=== PATIENT | female | born 1960 | race African-American/Black ===

== ENCOUNTER 2016-10-24 05:46 | Day surgery (SDC) | payer MEDICAID ==
[2016-10-22 09:20] LABS: EOSINOPHILS 1.5 % (0-7); HEMATOCRIT 40.3 % (36.0-48.0); HEMOGLOBIN 13.2 g/dL (12-16); IMMATURE GRANULOCYTES 0.2 % (0-5); LYMPHOCYTES 38.5 % (15-50); MCH 32.9 pg (26.0-34.0); MCHC 32.8 g/dL (31.0-37.0); MCV 100.5 fL (80.0-100.0); MEAN PLATELET VOLUME 10.7 fL (7.4-10.4); MONOCYTES 12.9 % (2-11); NEUTROPHILS 45.9 % (40-80); PLATELET COUNT 261 10x3/uL (130-400); RBC 4.01 10x6/uL (4.00-5.40); RDW 12.5 % (11.5-14.5); WBC 4.8 10x3/uL (4.8-10.8)
[2016-10-22 09:37] LABS: CALC OSMOLALITY 277 mosm/kg (275-300); CALCIUM 8.8 mg/dL (8.5-10.1); CARBON DIOXIDE 32.6 mmol/L (21.0-32.0); CHLORIDE - SERUM 103 mmol/L (98-107); CREATININE - SERUM 0.7 mg/dL (0.6-1.3); GLUCOSE 88 mg/dL (74-106); POTASSIUM - SERUM 3.4 mmol/L (3.5-5.1); SODIUM 140 mmol/L (136-145); UREA NITROGEN 12 mg/dL (7-18); eGFR NON AFRICAN AMERICAN > 90 mL/min (90-120)
[~2016-10-24] VITALS: Ht 170.2 cm; Wt 58.5 kg
[~2016-10-24 05:46] MED LIST: FOLIC ACID1 MG PO; HUMIRA20 MG/0.4 SQ; LIPITOR20 MG PO; MYSOLINE250 MG PO; ULTRAM50 MG PO; XALATAN 0.0052.5 ML EACH EYE; ZOLOFT100 MG PO
--- NOTE | 2016-10-24 06:08 | NUR ---
0605-AFTER SCANNING PILL PACKAGES, IT WAS DISCOVERED PT. HAD HISTORY OF GLAUCOMA ROBINUL WAS NOT ADMINISTERED-WASTED IN TRASH CAN.
[2016-10-24 06:12] VITALS: BP 148/89; Ht 170.2 cm; Wt 58.5 kg
[2016-10-24] MEDS ORDERED: MEPERIDINE HCL50 MG PO (09:19)
--- NOTE | 2016-10-24 11:45 | NUR ---
DISCHARGE INSTRUCTIONS AND RX GIVEN, VOICED UNDERSTANDING. DISCHARGED HOME VIA WC.
--- NOTE | 2016-10-24 16:25 | OP ---
PATIENT NAME: SHAHAB REYNOLDS MEDICAL RECORD: [id number] :58 LOCATION:D.OPS ADMISSION DATE: SURGEON: SHAWN THRASHER MD DATE OF OPERATION: 10/24/2016 PREOPERATIVE DIAGNOSES: 1. Biliary dyskinesia. 2. Hypercholesterolemia. 3. Arthritis. POSTOPERATIVE DIAGNOSES: 1. Biliary dyskinesia. 2. Hypercholesterolemia. 3. Arthritis. PROCEDURE: Single incision laparoscopic converted to a traditional laparoscopic cholecystectomy. SURGEON: Shawn Thrasher MD REPORT OF PROCEDURE: The patient's abdomen was prepped and draped in sterile fashion. A cutdown was made through the patient's umbilicus. Electrocautery was used to dissect through the subcutaneous tissues and through the fascia, once in the abdominal cavity, then an SILS port was inserted. After insufflation was obtained, the patient's gallbladder was grasped and elevated. The patient had a very long liver. It was thin, but very long and the gallbladder was retracted into the liver. We attempted dissection and it was very difficult because the anatomy of the patient. We eventually were able to dissect out the cystic duct, but the cystic duct was very short, maybe 1-2 cm in length. We eventually elected just to convert to a traditional laparoscopic procedure to facilitate better visualization. A 5-mm trocars times 3 were inserted in the right subcostal region. At this point, the cystic duct was clearly visualized. It was short, but we had good visualization and we could see the cystic artery, we had our critical view of safety, we clipped these 2 structures proximally and distally and ligated them standard fashion. The gallbladder was then taken off the liver bed using electrocautery. Any bleeding from the liver bed was then treated with electrocautery. We irrigated out the right upper quadrant and assured there was no sign of any bleeding or bile leakage. At this point, the ports and insufflation were then removed and the gallbladder was taken out through the umbilicus. The umbilical fascia was closed with interrupted 0 Vicryls times 5. The wounds were irrigated out with normal saline and infused with 10 mL of 0.25% Marcaine with epinephrine. The skin incisions were all closed with subcutaneous 5-0 Monocryl and dressed appropriately. COMPLICATIONS: None. CONDITION: Stable. ANESTHESIA: General endotracheal and local. BLOOD LOSS: 30 mL. TRANSINT:[id number] Voice Confirmation ID: [id number] DOCUMENT ID: [id number] CC: Ang Hendrickson APN [facility] [phone] OPERATIVE REPORT [id number] SHAHAB REYNOLDS CHRISTIAN MD at 1625 CC: ANG HENDRICKSON APN [id number] DICTATION DATE: 10/24/16922 SAMPLE PASTER: 10/24/16 1147 [facility] 10/24/16 [place] [id number]
== END 2016-10-24 11:45 | disposition home or self-care (01) ==
LOC: D.OPS 05:46 → D.PAN 12:00 → D.OPS 12:00
PROVIDERS: Surgery
DX: K82.8 Other specified diseases of gallbladder (principal); E78.00 Pure hypercholesterolemia, unspecified; M19.90 Unspecified osteoarthritis, unspecified site

== ENCOUNTER → 2017-01-26 13:43 | Outpatient (CLI) | payer MEDICAID ==
[2016-10-24 06:12] VITALS: BMI 20.2
[~2017-01-26 13:43] MED LIST changes: +MEPERIDINE HCL50 MG PO
== END | disposition home or self-care (01) ==
LOC: D.MRI 13:43
DX: S93.402A Sprain of unspecified ligament of left ankle, initial encounter (principal)

== ENCOUNTER 2017-11-09 06:07 | Emergency (ER) | payer MEDICAID ==
[2016-10-24 06:12] VITALS: BMI 20.2
[2017-11-09 06:27] LABS: BASOPHILS 0.4 % (0-2); EOSINOPHILS 1.2 % (0-7); HEMATOCRIT 38.1 % (36.0-48.0); IMMATURE GRANULOCYTES 0.1 % (0-5); LYMPHOCYTES 32.7 % (15-50); MCH 33.4 pg (26.0-34.0); MCHC 34.1 g/dL (31.0-37.0); MCV 97.9 fL (80.0-100.0); MEAN PLATELET VOLUME 10.4 fL (7.4-10.4); MONOCYTES 8.6 % (2-11); PLATELET COUNT 265 10x3/uL (130-400); RBC 3.89 10x6/uL (4.00-5.40); RDW 12.8 % (11.5-14.5); WBC 7.4 10x3/uL (4.8-10.8)
[2017-11-09 06:42] LABS: AMYLASE - SERUM 150 U/L (25-115); LIPASE 149 U/L (73-393)
[2017-11-09 06:47] LABS: ALBUMIN 4.2 g/dL (3.4-5.0); ALKALINE PHOSPHATASE 84 U/L (46-116); ALT (SGPT) 73 U/L (10-68); BILIRUBIN - TOTAL 0.31 mg/dL (0.2-1.3); CALC OSMOLALITY 276 mosm/kg (275-300); CALCIUM 8.8 mg/dL (8.5-10.1); CARBON DIOXIDE 26.5 mmol/L (21.0-32.0); CHLORIDE - SERUM 103 mmol/L (98-107); CREATININE - SERUM 0.8 mg/dL (0.6-1.3); GLUCOSE 106 mg/dL (74-106); POTASSIUM - SERUM 3.6 mmol/L (3.5-5.1); PROTEIN - SERUM 7.4 g/dL (6.4-8.2); SODIUM 139 mmol/L (136-145); UREA NITROGEN 9 mg/dL (7-18); eGFR NON AFRICAN AMERICAN 78 mL/min (90-120)
== END 2017-11-09 08:10 | disposition home or self-care (01) ==
LOC: D.ER 06:07
PROVIDERS: Family Medicine
DX: R11.10 Vomiting, unspecified (principal); R51 Headache

== ENCOUNTER → 2018-01-04 12:17 | Outpatient (CLI) | payer MEDICAID ==
[2016-10-24 06:12] VITALS: BMI 20.2
== END | disposition home or self-care (01) ==
LOC: D.MRI 12:17
DX: M54.2 Cervicalgia (principal)

== ENCOUNTER → 2018-03-17 12:01 | Outpatient (CLI) | payer MEDICAID ==
[2016-10-24 06:12] VITALS: BMI 20.2
== END | disposition home or self-care (01) ==
LOC: D.RAD 12:01 → D.MRI 14:00
DX: S43.491A Other sprain of right shoulder joint, initial encounter (principal); X58.XXXA Exposure to other specified factors, initial encounter

== ENCOUNTER 2019-11-10 05:55 | Day surgery (SDC) | payer MEDICAID ==
[2019-11-08 10:30] LABS: HEMATOCRIT 38.8 % (36.0-48.0); HEMOGLOBIN 12.8 g/dL (12-16); MCH 33.2 pg (26.0-34.0); MCV 100.5 fL (80.0-100.0); MEAN PLATELET VOLUME 10.6 fL (7.4-10.4); RBC 3.86 10x6/uL (4.00-5.40); RDW 13.7 % (11.5-14.5); WBC 7.8 10x3/uL (4.8-10.8)
[~2019-11-10] VITALS: Ht 167.6 cm; Wt 68.0 kg
[~2019-11-10 05:55] MED LIST changes: +ALPHAGAN 0.2%5 ML; +AMBIEN10 MG PO; +CYMBALTA60 MG PO; +DONEPEZIL HCL10 MG PO; +KLONOPIN0.5 MG PO; +LYRICA75 MG PO; +MOBIC7.5 MG PO; +PROTONIX40 MG PO; +TIMOPTIC 0.5 % O5 ML EACH EYE
[2019-11-10 07:02] VITALS: BP 159/101; Ht 167.6 cm; Wt 68.0 kg
[2019-11-10] MEDS ORDERED: HYDROCODON-ACE1 EA10 PO (09:35)
--- NOTE | 2019-11-10 12:05 | NUR ---
PATIENT AMBULATING AROUND ROOM WITHOUT UNSTEADINESS OR DIZZINESS, PIV DC'D WITH TIP INTACT, DISCHARGE INSTRUCTIONS REVIEWED WITH PATIENT AND SPOUSE, DISCHARGED HOME VIA WHEELCHAIR TO PRIVATE VEHICLE WITH SPOUSE
--- NOTE | 2019-11-14 09:56 | OP ---
PATIENT NAME: SHAHAB REYNOLDS MEDICAL RECORD: [id number] :58 LOCATION:D.OPS ADMISSION DATE: SURGEON: RACH PAINTER MD DATE OF OPERATION: 11/10/2019 PREOPERATIVE DIAGNOSIS: Impingement syndrome of the right shoulder. POSTOPERATIVE DIAGNOSIS: Impingement syndrome of the right shoulder. PROCEDURES: 1. Arthroscopic distal clavicle excision done through separate incision - 1 cm. 2. Arthroscopic subacromial decompression with acromioplasty and bursectomy. SURGEON: Rach Painter MD ANESTHESIA: General. INTRAOPERATIVE COMPLICATIONS: None. SUMMARY OF PATHOLOGIC FINDINGS: As predicted by the MRI, the patient had attritional changes of the rotator cuff. No articular rotator cuff tearing was seen. The patient had a downward sloping acromion with severe excoriation of the coracoacromial ligament as well as grade IV changes in the distal clavicle. OPERATIVE SUMMARY IN DETAIL: After obtaining appropriate preoperative orthopedic surgery consent as well as anesthetic consultation, evaluation and clearance, the patient was brought to the operating room and placed on the operating table in a supine position. After adequate general laryngeal mask airway was administered, the patient was placed in the left lateral decubitus position. All pressure points were well padded to include down leg peroneal pad as well as axillary roll. She was held firmly to the operating table using vacuum pack suction system. The patient's right upper extremity and shoulder were then prepped and draped in routine sterile fashion. The arm was held in the Arthrex traction boom in 30 degrees of forward flexion, 30 degrees of abduction, 10 pounds of traction laterally. At this point, the appropriate timeout was taken and agreed upon by all given the patient's unique identifiers. Arthroscopy was then established in the glenohumeral joint from the posterior portal. Anterior portal was established in the anterior safe interval. Diagnostic arthroscopy of the glenohumeral joint showed mild labral tearing and minimal amount of biceps tendinitis. No rotator cuff tearing was seen. Attention was then turned to the subacromial space. Arthroscopy was established in the subacromial space. Accessory lateral portal was created through which the [place] tissue ablation system was utilized to denude the undersurface of the acromion of all soft tissue elements and release the coracoacromial ligament. A 5.0 barrel bur was then used to perform acromioplasty at the level of acromioclavicular joint. Then through a separate anterior portal under direct arthroscopic visualization, distal clavicle was excised for 1 cm and all osteophytes were taken down. Lastly, the subacromial bursitis was removed both anteriorly, laterally, posteriorly as well as superiorly. The rotator cuff had some small attritional tearing, but nothing beyond approximately 10%. Having completed this, arthroscopy portals were closed in routine interrupted fashion using 4-0 Prolene. Sterile dressings were applied. The patient was awakened and taken to the recovery room in stable condition. All final needle and sponge counts were correct. OPERATIVE REPORT [id number] SHAHAB REYNOLDS TRANSINT:[id number] Voice Confirmation ID: [id number] DOCUMENT ID: [id number] MADINA SCHMITT, RACH VELARDE at 0956 CC: [id number] DICTATION DATE: 11/11/19 1005 [employer]AURANT ASSOCIATE: 11/11/19 1237 [facility] 11/10/19 [place] [id number] [place] [address]
== END 2019-11-10 12:05 | disposition home or self-care (01) ==
LOC: D.OPS 05:55 → D.PAN 08:15 → D.OPS 08:15 → D.PAN 12:30
PROVIDERS: Anesthesiology; ATTEND Orthopaedic Surgery
DX: M75.41 Impingement syndrome of right shoulder (principal); M25.519 Pain in unspecified shoulder

== ENCOUNTER 2020-02-14 05:55 | Day surgery (SDC) | payer MEDICAID ==
[~2020-02-14] VITALS: Ht 168.9 cm; Wt 72.7 kg
--- NOTE | ~2020-02-14 | OP ---
PATIENT NAME: SHAHAB REYNOLDS MEDICAL RECORD: [id number] :58 LOCATION:D.OPS ADMISSION DATE: SURGEON: GRETTA THRASHER MD DATE OF OPERATION: 02/14/2020 PREOPERATIVE DIAGNOSES: 1. Gastroesophageal reflux disease. 2. Hypercholesterolemia. POSTOPERATIVE DIAGNOSES: 1. Gastroesophageal reflux disease. 2. Hypercholesterolemia. PROCEDURE: 1. EGD with biopsy. 2. Ortiz catheter placement. SURGEON: Gretta Thrasher MD REPORT OF PROCEDURE: The Olympus endoscope was advanced through the mouth and esophagus. We were able to easily pass through the GE junction into the stomach. As we passed through the pylorus, we could see the duodenum and there was no sign of inflammatory changes, masses or ulcerations. As we pulled back and biopsy was taken of the antrum of the stomach, there was just some mild gastritis noted. There are no ulcerations or masses visible. Retroflexed view showed that the patient had a moderate size hiatal hernia. This was measured out to be about 3-4 cm in size. As we pulled the scope back, we took some biopsies of the distal aspect of the esophagus. There are no signs of any ulcerations, but there was some white patchy changes to the tissue. We then removed the insufflation and pulled back the scope and did a careful inspection of the esophagus and again no masses or strictures were noted. Following removal of the catheter, the Ortiz pH monitor was inserted. The GE junction was noted to be at 35 cm on the EGD, so this monitor was placed at 30 cm at the teeth. After a lot amount of time, the device was deployed. COMPLICATIONS: None. CONDITION: Stable. ANESTHESIA: TIVA. BLOOD LOSS: Minimal. TRANSINT:[id number] Voice Confirmation ID: [id number] DOCUMENT ID: [id number] GRETTA THRASHER MD CC: [id number] DICTATION DATE: 02/14/20800 CATERING COOK: 02/14/2038 [facility] [address] [place] [address]
[~2020-02-14 05:55] MED LIST changes: +HYDROCODON-ACE1 EA10 PO
[2020-02-14 06:25] LABS: BASOPHILS 0.6 % (0-2); EOSINOPHILS 1.9 % (0-7); HEMATOCRIT 39.9 % (36.0-48.0); HEMOGLOBIN 13.1 g/dL (12-16); IMMATURE GRANULOCYTES 0.2 % (0-5); LYMPHOCYTES 41.9 % (15-50); MCH 32.3 pg (26.0-34.0); MCHC 32.8 g/dL (31.0-37.0); MCV 98.5 fL (80.0-100.0); MONOCYTES 10.7 % (2-11); NEUTROPHILS 44.7 % (40-80); RBC 4.05 10x6/uL (4.00-5.40); RDW 12.7 % (11.5-14.5); WBC 5.2 10x3/uL (4.8-10.8)
[2020-02-14 06:35] LABS: PLATELET COUNT 288 10x3/uL (130-400)
[2020-02-14 06:52] LABS: ANION GAP 12.7 mmol/L (8-16); CALCIUM 8.6 mg/dL (8.5-10.1); CARBON DIOXIDE 28.8 mmol/L (21.0-32.0); CREATININE - SERUM 0.9 mg/dL (0.6-1.3); POTASSIUM - SERUM 3.5 mmol/L (3.5-5.1)
[2020-02-14 07:11] VITALS: Ht 168.9 cm; Wt 72.7 kg
--- NOTE | 2020-02-14 08:44 | NUR ---
DC INSTRUCTIONS GIVEN TO PT/SPOUSE. STATE UNDERSTANDING. DC'D IV CATH FULLY INTACT.
--- NOTE | 2020-02-14 08:49 | NUR ---
PT LEFT UNIT VIA WC AT 0869
== END 2020-02-14 08:50 | disposition home or self-care (01) ==
LOC: D.OPS 05:55
PROVIDERS: ATTEND Surgery
DX: K21.9 Gastro-esophageal reflux disease without esophagitis (principal); E78.00 Pure hypercholesterolemia, unspecified

== ENCOUNTER 2020-03-08 06:21 | Day surgery (SDC) | payer MEDICAID ==
[~2020-03-08] VITALS: Ht 167.6 cm; Wt 70.9 kg
[2020-03-08] VITALS (11 sets, daily range): BP systolic 129–177; BP diastolic 76–95; Ht 167.6 cm; Wt 70.9 kg
[2020-03-08 06:48] LABS: BASOPHILS 0.6 % (0-2); EOSINOPHILS 2.5 % (0-7); HEMATOCRIT 37.5 % (36.0-48.0); HEMOGLOBIN 12.2 g/dL (12-16); IMMATURE GRANULOCYTES 0.2 % (0-5); LYMPHOCYTES 45.7 % (15-50); MCH 32.4 pg (26.0-34.0); MCHC 32.5 g/dL (31.0-37.0); MCV 99.5 fL (80.0-100.0); MEAN PLATELET VOLUME 10.6 fL (7.4-10.4); PLATELET COUNT 270 10x3/uL (130-400); RBC 3.77 10x6/uL (4.00-5.40); RDW 13.2 % (11.5-14.5); WBC 4.8 10x3/uL (4.8-10.8)
[2020-03-08 07:12] LABS: CALC OSMOLALITY 280 mosm/kg (275-300); CALCIUM 7.9 mg/dL (8.5-10.1); CHLORIDE - SERUM 105 mmol/L (98-107); CREATININE - SERUM 0.8 mg/dL (0.6-1.3); GLUCOSE 101 mg/dL (74-106); POTASSIUM - SERUM 3.6 mmol/L (3.5-5.1); SODIUM 141 mmol/L (136-145); UREA NITROGEN 12 mg/dL (7-18); eGFR NON AFRICAN AMERICAN 77 mL/min (90-120)
--- NOTE | 2020-03-08 20:05 | NUR ---
LYING IN BED. C/O GAS PAIN. ENCOURAGED TO AMBULATE. HAS DILAUDID ROUTE CARRIER. NS @ 125 ML/HR INFUSINGIN LT FOREARM. LAP SITES X5 NOTED TO ABD WITH BANDAIDS COVERING THE SITES. NO DRAINAGE NOTED. ABD IS DISTENDED. BS ARE HYPOACTIVE. SCDS IN USE. ENCOURAGED USE OF I.S. SR ELEVATED X2. CL IN REACH. ALERT AND ORIENTED X4.
[2020-03-09] VITALS: BP 175/80
--- NOTE | 2020-03-09 03:03 | NUR ---
HAS RESTED WELL TONIGHT. LYING ON LT SIDE WITH EYES CLOSED. RESP EVEN AND NONLABORED. NO DISTRESS. CL IN REACH.
[2020-03-09 04:00] VITALS: BP 168/88
[2020-03-09 05:21] LABS: BASOPHILS 0.1 % (0-2); EOSINOPHILS 0.1 % (0-7); IMMATURE GRANULOCYTES 0.2 % (0-5); LYMPHOCYTES 26.6 % (15-50); MCH 32.1 pg (26.0-34.0); MCHC 32.8 g/dL (31.0-37.0); MONOCYTES 9.2 % (2-11); NEUTROPHILS 63.8 % (40-80); PLATELET COUNT 296 10x3/uL (130-400); RDW 12.8 % (11.5-14.5)
[2020-03-09 05:24] LABS: HEMATOCRIT 29.3 % (36.0-48.0); HEMOGLOBIN 9.6 g/dL (12-16); RBC 2.99 10x6/uL (4.00-5.40); WBC 8.6 10x3/uL (4.8-10.8)
[2020-03-09 06:03] LABS: CALC OSMOLALITY 269 mosm/kg (275-300); CALCIUM 7.4 mg/dL (8.5-10.1); CARBON DIOXIDE 28.2 mmol/L (21.0-32.0); CHLORIDE - SERUM 102 mmol/L (98-107); CREATININE - SERUM 0.7 mg/dL (0.6-1.3); GLUCOSE 117 mg/dL (74-106); POTASSIUM - SERUM 3.7 mmol/L (3.5-5.1); SODIUM 135 mmol/L (136-145); UREA NITROGEN 9 mg/dL (7-18); eGFR NON AFRICAN AMERICAN 90 mL/min (90-120)
--- NOTE | 2020-03-09 07:16 | NUR ---
PT RESTING QUIETLY IN BED. RESP EVEN AND UNLABORED. PT REPORTS PAIN ACROSS ABDOMEN "GAS PAIN" / AT THIS TIME. DILAUDID STERILIZER OPERATOR INTACT AND IN USE WHEN REMINDED. DRESSING X 5 TO LAP SITES ON ABDOMEN, C/D/I. ASSISTED PT TO BSC AT THIS TIME AND BACK TO BED. SCD'S IN PLACE. DENIES FURTHER NEEDS AT THIS TIME. CL WITHIN REACH. ENCOURAGED TO CALL WITH NEEDS. CONTINUE POC
[2020-03-09 10:29] VITALS: BP 168/82
[2020-03-09] MEDS ORDERED: HYDROCODON-ACE1 EA10 PO (12:06)
[2020-03-09] MEDS ORDERED: REGLAN10 MG PO (12:06)
--- NOTE | 2020-03-09 13:40 | OP ---
PATIENT NAME: SHAHAB REYNOLDS MEDICAL RECORD: [id number] :58 LOCATION:D.MS [place].2200 ADMISSION DATE: SURGEON: SHAWN THRASHER MD DATE OF OPERATION: 03/08/2020 PREOPERATIVE DIAGNOSES: 1. Gastroesophageal reflux disease. 2. Hiatal hernia. 3. Arthritis. 4. Hypercholesterolemia. POSTOPERATIVE DIAGNOSES: 1. Gastroesophageal reflux disease. 2. Hiatal hernia. 3. Arthritis. 4. Hypercholesterolemia. PROCEDURE: Laparoscopic Addis with hiatal hernia repair. SURGEON: Shawn Thrasher MD REPORT OF PROCEDURE: The patient's abdomen was prepped and draped in sterile fashion. A Veress needle was inserted in the left upper quadrant and the abdomen was insufflated. Then, an 11-mm Visiport trocar was inserted in the midline just above the umbilicus. I can see the Veress needle and there was no sign of any injury to bowel or surrounding structures. An 11-mm trocar was then placed in the left subcostal region, a 5-mm trocar was placed in the epigastrium, a 5-mm trocar was placed in the right lateral subcostal region, and a 5-mm trocar was placed in the left lateral abdomen. A liver retractor was inserted and the left lobe of the liver was elevated. We can see the patient had a small hiatal hernia present. We began by dissecting the lesser omentum using Harmonic scalpel. This dissection was continued to the right side of the right waylon. We scored this waylon and was able to get into the hernia sac and began dissecting this out of the thoracic cavity using Harmonic scalpel. Once we had this freed up as far anteriorly and posteriorly as possible, then we went to the greater curvature of the stomach and we took down the short gastrics of the upper third of the stomach using Harmonic scalpel. This dissection was continued over the fundus to the left side of the right waylon. We again scored the peritoneum and was able to take down this hernia sac from the thoracic cavity. We then at this point had the esophagus freed up and had a 360-degree inspection of the tissues. The patient's distal esophagus laid easily in the abdominal cavity without tension. We then performed a reapproximation of the diaphragmatic hiatus with interrupted 0 Polydeks times 3. We then performed a 360-degree posterior wrap of the fundus of the stomach around the distal esophagus using interrupted 0 Polydeks times 3 with the top and the bottom suture incorporating a bite of the esophagus. There was no sign of any active bleeding intraabdominally. We then irrigated out the abdomen with normal saline. The 11-mm trocar site fascias were closed with 0 Vicryl using a Charles-David suture passer device. The ports and insufflation were then removed. The incisions were infused with a total of 10 mL of 0.25% Marcaine with epinephrine and then closed with subcutaneous 5-0 Monocryl. COMPLICATIONS: None. CONDITION: Stable. OPERATIVE REPORT [id number] SHAHAB REYNOLDS ANESTHESIA: General endotracheal and local. BLOOD LOSS: 30 mL. TRANSINT:[id number] Voice Confirmation ID: [id number] DOCUMENT ID: [id number] cc: Ang Hendrickson APRN [phone] SHAWN THRASHER MD at 1340 CC: ANG HENDRICKSON APRN [phone] DICTATION DATE: 03/08/20 1000 FORM TAMPER: 03/08/20 1148 [facility] [address] [place] [address]
[2020-03-09 13:47] VITALS: BP 151/70
== END 2020-03-09 16:16 | disposition home or self-care (01) ==
LOC: D.MS 06:21 → D.OPS 06:21 → D.PAN 07:30 → D.OPS 08:00 → D.MS 10:36 → D.OPS 03-09 16:16
PROVIDERS: ATTEND Surgery
DX: K21.9 Gastro-esophageal reflux disease without esophagitis (principal); K44.9 Diaphragmatic hernia without obstruction or gangrene; M19.90 Unspecified osteoarthritis, unspecified site; E78.00 Pure hypercholesterolemia, unspecified

== ENCOUNTER → 2020-04-20 12:51 | Outpatient (CLI) | payer MEDICAID ==
[2020-03-08 15:56] VITALS: BMI 25.2
[~2020-04-20 12:51] MED LIST changes: +REGLAN10 MG PO
== END | disposition home or self-care (01) ==
LOC: D.MRI 04-18 13:00
PROVIDERS: ATTEND Orthopaedic Surgery
DX: M75.41 Impingement syndrome of right shoulder (principal)

== ENCOUNTER 2020-12-20 05:32 | Day surgery (SDC) | payer BC ==
[~2020-12-20] VITALS: Ht 167.6 cm; Wt 48.2 kg
[~2020-12-20 05:32] MED LIST changes: +DILAUDID4 MG PO; +FOLIC ACID; +HYDROXYCHLOROQ200 MG; +TREXALL5 MG PO
[2020-12-20 05:52] LABS: HEMATOCRIT 37.7 % (36.0-48.0); MCH 33.1 pg (26.0-34.0); MCHC 31.8 g/dL (31.0-37.0); MCV 103.9 fL (80.0-100.0); RBC 3.63 10x6/uL (4.00-5.40); RDW 13.6 % (11.5-14.5); WBC 4.1 10x3/uL (4.8-10.8)
[2020-12-20] MEDS ORDERED: KLONOPIN1 MG PO (06:30)
[2020-12-20] MEDS ORDERED: ANTIBIOTIC (06:31)
--- NOTE | 2020-12-20 06:35 | NUR ---
0774 PT HAS A POSTIVE LIFETIME SUICIDE SCREENING. PT STATES THE EVENT WAS 2 YEARS AGO AND IS SEEING DR. LOVING ON A REGULAR BASIS. PT DOES NOT WANT TO BE EVALUATED BY THE BEHAVIORAL HEALTH NURSE TODAY.
[2020-12-20 06:44] VITALS: Ht 167.6 cm; Wt 48.2 kg
--- NOTE | 2020-12-20 08:32 | NUR ---
ATTEMPTED TO CALL DR. THRASHER'S OFFICE X 2 TO MAKE F/U APPT. GOT RECORDING SAYING OFFICE IS CLOSED. INSTRUCTED PT TO CALL AND MAKE F/U APPT FOR 2-3 WKS.
--- NOTE | 2020-12-20 09:00 | NUR ---
DISCHARGE INSTRUCTIONS REVIEWED WITH PATIENT. VERBALIZED UNDERSTANDING. COPIES PROVIDED TO PT. IV DC'D, CATHETER INTACT. PT UP GETTING DRESSED FOR DC.
--- NOTE | 2020-12-20 09:06 | NUR ---
DISCHARGED VIA W/C, ACCOMPANIED BY THIS NURSE, TO POV WITH SPOUSE DRIVING. ALL BELONGINGS AND DC PACKET WITH PT.
--- NOTE | 2020-12-20 14:09 | OP ---
PATIENT NAME: SHAHAB REYNOLDS MEDICAL RECORD: [id number] :58 LOCATION:D.OPS ADMISSION DATE: SURGEON: SHAWN THRASHER MD DATE OF OPERATION: 12/20/2020 PREOPERATIVE DIAGNOSES: 1. Dysphagia. 2. History of Addis fundoplication. 3. Lupus. POSTOPERATIVE DIAGNOSES: 1. Dysphagia. 2. History of Addis fundoplication. 3. Lupus. PROCEDURE: EGD with dilatation. SURGEON: Shawn Thrasher MD REPORT OF PROCEDURE: An Olympus endoscope was advanced through the mouth and esophagus. We were able to pass through the GE junction. It was a mildly tight, but we were able to pass the scope through easily. There are no signs of any inflammatory changes on the distal esophagus. A retroflexed view showed the wrap to be in good position as we passed through the stomach, we did not see any masses, lesions, or ulcerations. The pylorus appeared to be tight and there was some tension with passing the scope through this, but after we passed the scope then it was widely open and patent we could see end of the second portion of the duodenum and again no masses, lesions or ulcerations were visualized. As we pulled the scope back, I could see the pylorus and it was widely open and patent and I was able to pass the scope through much more freely now. A 18-20 Urdu inflatable balloon was inserted and we pulled this back until it rested across the GE junction. We inflated the balloon up to 20 mm with some gentle tension. At the conclusion of this, the GE junction appeared to be more open and we were able to pass the scope through more easily. There are no signs of any bleeding and no evidence of any trauma to the tissues. At this point, the insufflation and the scope were removed. COMPLICATIONS: None. CONDITION: Stable. ANESTHESIA: TIVA. BLOOD LOSS: Minimal. TRANSINT:[id number] Voice Confirmation ID: [id number] DOCUMENT ID: [id number] cc: Ang Hendrickson APN [phone] OPERATIVE REPORT [id number] SHAHAB REYNOLDS SHAWN THRASHER MD at 1409 CC: ANG HENDRICKSON APN [phone] DICTATION DATE: 12/20/20819 COMMUNICATIONS PLANNER: 12/20/20828 [facility] 12/20/20 [facility] [address] [place] [address]
== END 2020-12-20 09:06 | disposition home or self-care (01) ==
LOC: D.OPS 05:32
PROVIDERS: Anesthesiology; ATTEND Surgery
DX: R13.10 Dysphagia, unspecified (principal); Z98.890 Other specified postprocedural states; M32.9 Systemic lupus erythematosus, unspecified; K21.9 Gastro-esophageal reflux disease without esophagitis; M19.90 Unspecified osteoarthritis, unspecified site